=== PATIENT | female | born 1930 | race Caucasian/White ===

== ENCOUNTER 2016-07-05 15:02 | Observation (INO) | payer OTHER ==
[~2016-07-05] VITALS: Ht 157.5 cm; Wt 51.3 kg
--- NOTE | ~2016-07-05 | EKG ---
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: : 1930 Requested By: Kaitlynn Dove Order Number: [id number] MD: Norbert Estevez Measurements Intervals [place] Rate: 97 P: 62 UT: 180 QRS: -31 QRSD: 120 T: 48 QT: 394 QTc: 501 Interpretive Statements Sinus rhythmWith occasional premature ventricular complexes Incomplete left bundle branch block Left ventricular hypertrophy Prolonged QT interval Compared to ECG 05/27/2016 07:40:59 Atrial premature complexes no longer present Premature ventricular complexes noted Electronically Signed On 07-06-2016 14:22:54 CRM MARKETING EXECUTIVE by Norbert Estevez [email or web address] <ELECTRONICALLY SIGNED> By: Norbert Estevez MD, [facility] 07/06/16 1422 1548 1548 Norbert Estevez MD, [facility] /EPI
[~2016-07-05 15:02] MED LIST: COREG25 MG PO; DIGOXIN125 MCG PO; FISH OIL500 M2 PO; HYDRALAZINE 2525 MG PO; LANOXIN 0.120.125 M1 PO; LASIX 20 MG TAB20 MG PO; MIRALAX255 GM PO; NYSTATIN15 GM TP; PANTOPRAZOLE SO40 M1 PO; PRAVACHOL40 MG PO; PRAVASTATIN SOD80 MG PO; PROTONIX40 MG PO; TYLENOL325 MG PO; ZOFRAN ODT4 MG PO
[2016-07-05 15:05] VITALS: BP 118/61
[2016-07-05 16:14] LABS: HEMOGLOBIN 8.4 gm/dL (12.0-15.0); MCHC 33.5 % (28.0-37.0); MCV 86.4 fL (80.0-100.0); RBC 2.89 mil/uL (4.20-5.00); RDW 17.2 % (10.5-14.5); WBC 3.7 thou/uL (4.0-11.0)
[2016-07-05 16:19] LABS: ANION GAP 10 mmol/L (7-16); BUN 31 mg/dL (7-18); CALCIUM 9.4 mg/dL (8.5-10.1); CHLORIDE 104 mmol/L (98-107); CO2 28 mmol/L (21-32); CREATININE 1.5 mg/dL (0.6-1.3); GLUCOSE 103 mg/dL (70-99); POTASSIUM 3.9 mmol/L (3.5-5.1); SODIUM 142 mmol/L (136-145)
[2016-07-05 16:33] LABS: ALBUMIN 3.8 g/dL (3.4-5.0); ALKALINE PHOSPHATASE 107 U/L (46-116); NT-PRO BRAIN NAT PEPTIDE 8954 pg/mL (<300); SGOT 14 U/L (15-37); SGPT 30 U/L (30-65); TOTAL BILIRUBIN 0.6 mg/dL (<0.1-1.0); TOTAL PROTEIN 7.5 g/dL (6.4-8.2); TROPONIN-I < 0.04 ng/mL (<0.04-0.07)
[2016-07-05 17:55] VITALS: BP 117/87
[2016-07-05 21:00] VITALS: BP 91/56
[2016-07-05 22:01] LABS: CK-MB MASS 0.8 ng/mL (<0.5-3.6); TROPONIN-I < 0.04 ng/mL (<0.04-0.07)
[2016-07-06 03:18] LABS: CK-MB MASS < 0.5 ng/mL (<0.5-3.6); TROPONIN-I < 0.04 ng/mL (<0.04-0.07)
[2016-07-06 04:00] VITALS: BP 96/50
[2016-07-06 08:28] VITALS: BP 104/60
[2016-07-06] MEDS ORDERED: ASPIR 8181 MG PO (11:21)
[2016-07-06 12:10] VITALS: BP 107/53
[2016-07-06 12:13] VITALS: BP 107/53
[2016-08-18] MEDS ORDERED: FLONASE 0.05%50 MCG NASAL (17:30)
[2016-08-20] MEDS ORDERED: LASIX 40 MG TAB40 M2 PO (09:41)
[2016-08-20] MEDS ORDERED: HYDRALAZINE 2525 MG PO (11:50)
== END 2016-07-06 13:46 | disposition home or self-care (01) ==
LOC: ER 15:02 → 4E 16:58 → EROBS 16:58 → 4E 17:57
PROVIDERS: Hospitalist; Physician Assistant
DX: I13.0 Hypertensive heart and chronic kidney disease with heart failure and stage 1 through stage 4 chronic kidney disease, or unspecified chronic kidney disease (principal); I50.23 Acute on chronic systolic (congestive) heart failure; N18.9 Chronic kidney disease, unspecified; N17.0 Acute kidney failure with tubular necrosis; J81.1 Chronic pulmonary edema; D50.0 Iron deficiency anemia secondary to blood loss (chronic); K21.9 Gastro-esophageal reflux disease without esophagitis; L02.91 Cutaneous abscess, unspecified; H26.9 Unspecified cataract; L22 Diaper dermatitis; R51 Headache; Z88.0 Allergy status to penicillin; Z79.899 Other long term (current) drug therapy

== ENCOUNTER 2016-10-12 18:00 | Emergency (ER) | payer OTHER ==
[~2016-10-12] VITALS: Ht 157.5 cm; Wt 46.3 kg
[~2016-10-12 18:00] MED LIST changes: +ASPIR 8181 MG PO; +FLONASE 0.05%50 MCG NASAL; +LASIX 40 MG TAB40 M2 PO
== END 2016-10-12 18:46 | disposition home or self-care (01) ==
LOC: ER 18:00
DX: S01.01XA Laceration without foreign body of scalp, initial encounter (principal); I13.0 Hypertensive heart and chronic kidney disease with heart failure and stage 1 through stage 4 chronic kidney disease, or unspecified chronic kidney disease; N18.9 Chronic kidney disease, unspecified; I50.9 Heart failure, unspecified; Z88.0 Allergy status to penicillin; W18.09XA Striking against other object with subsequent fall, initial encounter; Y93.89 Activity, other specified; Y92.89 Other specified places as the place of occurrence of the external cause; Y99.8 Other external cause status

== ENCOUNTER 2016-10-26 10:24 | Inpatient (IN) | payer OTHER ==
[~2016-10-26] VITALS: Ht 157.5 cm; Wt 49.0 kg
--- NOTE | ~2016-10-26 | EKG ---
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 : 1930 Requested By: Taya Antoine Order Number: [id number] MD: Norbert Estevez Measurements Intervals [place] Rate: 69 P: 41 [place]: 187 QRS: -40 QRSD: 127 T: 3 QT: 439 QTc: 471 Interpretive Statements Sinus rhythm Multiple premature complexes, vent & supraven Leftward axis Nonspecific intraventricular conduction delay Compared to ECG 08/18/2016 17:53:45 nonspecific change in the ST and T wave segments Electronically Signed On 10-28-2016 8:32:33 CDT by Norbert Estevez [email or web address] <ELECTRONICALLY SIGNED> By: Norbert Estevez MD, [facility] 10/28/16 0832 1031 1031 Norbert Estevez MD, [facility] /EPI
--- NOTE | ~2016-10-26 | HC ---
[facility] [place] [address] CONSULTATION Name: SHANNON PARISH Room #: 459-P ADM IN M.R.#: [id number] Admission: 10/26/16 Attend Phys: Rafal Esqueda MD Discharge: Date of : 30 Report #: [id number] THIS REPORT FOR: //name// CC: FAM unknown Esequiel Esqueda Patient's Chart DATE OF SERVICE: 10/27/2016 HISTORY OF PRESENT ILLNESS: The patient is an 85-year-old female who I was asked to see in the hospital today after she complained of being short of breath. The patient has a history of cardiomyopathy. She has had a history of orthostatic hypotension in the past. She has been followed by my partner, Dr. Canales. She has never had a heart catheterization but an echocardiogram last April showed an ejection fraction of 30% with left atrial enlargement, moderate mitral and tricuspid insufficiency. The patient has had several hospitalizations here at [facility]. The patient has not been on an GRICELDA inhibitor or ARB in the past because of hypotension. She was not on spironolactone because of chronic kidney disease. The patient was actually just admitted here to [facility] in July with acute on chronic systolic heart failure. She was diuresed with Lasix. She was brought to the emergency room yesterday with fatigue, no appetite, shortness of breath. After admission, she was noted to have hypotension. I was asked to see her for further evaluation and treatment. She denies any chest pain, palpitations. She has felt lightheaded. She has had no syncope. PAST MEDICAL HISTORY: Significant for tonsillectomy, cataract extraction, hysterectomy. She has a history of hyperlipidemia, chronic kidney disease. CURRENT MEDICATIONS: Include Lasix, hydralazine, Protonix, carvedilol, aspirin. ALLERGIES: She has an allergy to PENICILLIN. FAMILY HISTORY: Significant for diabetes. SOCIAL HISTORY: She is . She and her live in [place], [place]. Nonsmoker, nondrinker. REVIEW OF SYSTEMS: She had no history of stroke, asthma, peptic ulcer disease, liver disease, cancer, psychiatric illness, chronic skin condition. PHYSICAL EXAMINATION: GENERAL: Revealed an elderly frail appearing female lying in bed. She appears in no distress. VITAL SIGNS: When she came to the emergency room yesterday, she had a blood [facility] [address] [place] [address] CONSULTATION Name: SHANNON PARISH Room #: 459-P [facility] IN .R.#: [id number] Admission: 10/26/16 Attend Phys: Rafal Eqsueda MD Discharge: Date of : 30 Report #: [id number] pressure only 80 systolic, pulse 70. She is afebrile. HEENT: She is anicteric. Conjunctivae are pink. Mucous membranes are moist. NECK: Veins appear mildly distended. No carotid bruits. CHEST: Clear to auscultation. CARDIOVASCULAR: Regular rate and rhythm, grade 3 holosystolic murmur at the apex. ABDOMEN: Soft. EXTREMITIES: Had no edema. Posterior tibial pulse 2+ bilaterally. SKIN: Warm, dry. NEUROLOGIC: Nonfocal. LYMPH: No adenopathy. MUSCULOSKELETAL: She did have some deformity of her interphalangeal joints. LABORATORY DATA: Her ECG showed a sinus rhythm, occasional PAC, occasional PVC. Left axis, nonspecific ST segment changes. Her workup in the emergency room, she had sodium 140, potassium 3.8. Her BUN was 38, creatinine was 1.6. Her liver function studies were normal. Her white blood cell count was 3.9, hemoglobin was 7.7. Her MCV is 85, platelet count 132,000. TSH in July was 3.5, ferritin in April was 239. B12 in July was 467. Urinalysis, trace protein, negative leukocytes. IMPRESSION AND RECOMMENDATIONS: 1. Cardiomyopathy. I would recommend repeat echocardiogram. I would hold the patient's carvedilol and hydralazine at this time because of low blood pressure. 2. Chronic kidney disease. 3. Anemia. No history of bleeding. 4. Chronic kidney disease. <ELECTRONICALLY SIGNED> By: Cristiano Stewart MD, FACC 10/28/16 0842 1719 0745 Cristiano Stewart MD, FACC /nt
[2016-10-26 10:25] VITALS: BP 80/49
[2016-10-26 10:41] LABS: HEMATOCRIT 23.7 % (37.0-47.0); MCH 28.7 pg (26.0-34.0); MCHC 33.9 g/dL (28.0-37.0); MCV 84.9 fL (80.0-100.0); PLATELET COUNT 128 thou/uL (150-400); RBC 2.79 mil/uL (4.20-5.00); RDW 20.1 % (10.5-14.5); WBC 3.7 thou/uL (4.0-11.0)
[2016-10-26 10:42] LABS: MANUAL DIFF YES
[2016-10-26 10:49] LABS: CALCIUM 8.5 mg/dL (8.5-10.1); CREATININE 1.7 mg/dL (0.6-1.0); POTASSIUM 4.3 mmol/L (3.5-5.1)
[2016-10-26 10:52] LABS: URINE BILIRUBIN NEGATIVE (Negative); URINE BLOOD NEGATIVE (Negative); URINE COLOR YELLOW; URINE GLUCOSE-RANDOM* NEGATIVE (Negative); URINE KETONES NEGATIVE (Negative); URINE NITRITE NEGATIVE (Negative); URINE PROTEIN (DIPSTICK) TRACE (Negative); URINE UROBILINOGEN 0.2 E.U./dl (0.2-1.0)
[2016-10-26 11:23] LABS: ABSOLUTE NEUTROPHILS 2.1 thou/uL (1.4-8.2); METAMYELOCYTES 1 %; TOTAL CELL COUNT 100
[2016-10-26 11:24] LABS: ANISOCYTOSIS 1+; OVALOCYTES FEW; POLYCHROMASIA OCCASIONAL
[2016-10-26 11:31] LABS: ALBUMIN 3.4 g/dL (3.4-5.0); DIRECT BILIRUBIN 0.2 mg/dL (<0.1-0.3); TOTAL BILIRUBIN 0.6 mg/dL (<0.1-1.0); TOTAL PROTEIN 6.8 g/dL (6.4-8.2)
[2016-10-26 12:45] VITALS: BP 108/74
[2016-10-26 13:10] VITALS: BP 94/60
[2016-10-26 16:06] VITALS: BP 92/55
[2016-10-26 19:05] VITALS: BP 97/73
[2016-10-27] VITALS (8 sets, daily range): BP systolic 82–120; BP diastolic 51–86
[2016-10-27 05:31] LABS: CALCIUM 8.7 mg/dL (8.5-10.1); CREATININE 1.6 mg/dL (0.6-1.0); POTASSIUM 3.8 mmol/L (3.5-5.1)
[2016-10-27 05:37] LABS: HEMATOCRIT 23.2 % (37.0-47.0); HEMOGLOBIN 7.7 gm/dL (12.0-15.0); MCH 28.4 pg (26.0-34.0); MCHC 33.2 g/dL (28.0-37.0); MCV 85.4 fL (80.0-100.0); RBC 2.71 mil/uL (4.20-5.00); RDW 19.9 % (10.5-14.5); WBC 3.9 thou/uL (4.0-11.0)
[2016-10-28 03:49] VITALS: BP 121/69
[2016-10-28 04:49] LABS: HEMATOCRIT 26.3 % (37.0-47.0); HEMOGLOBIN 8.7 gm/dL (12.0-15.0)
[2016-10-28 05:06] LABS: CALCIUM 8.8 mg/dL (8.5-10.1); CREATININE 1.5 mg/dL (0.6-1.0); POTASSIUM 4.1 mmol/L (3.5-5.1)
[2016-10-28 07:15] VITALS: BP 123/70
[2016-10-28 11:49] VITALS: BP 116/76
[2016-10-28 15:23] VITALS: BP 112/74
[2016-10-28 19:23] VITALS: BP 114/69
[2016-10-29] VITALS (7 sets, daily range): BP systolic 99–113; BP diastolic 61–81
[2016-10-29] MEDS ORDERED: SPIRONOLACTONE25 M1 PO (10:33)
[2016-10-29] MEDS ORDERED: COREG6.25 MG PO (10:33)
== END 2016-10-29 16:50 | disposition home health service (06) | DRG 315 ==
LOC: ER 10:24 → 4W 12:15 → EROBS 12:15 → 4W 12:45
PROVIDERS: Emergency Medicine; Family Medicine; Internal Medicine Cardiovascular Disease
DX: I42.9 Cardiomyopathy, unspecified (principal); D61.818 Other pancytopenia; I13.0 Hypertensive heart and chronic kidney disease with heart failure and stage 1 through stage 4 chronic kidney disease, or unspecified chronic kidney disease; E44.0 Moderate protein-calorie malnutrition; Z68.1 Body mass index [BMI] 19.9 or less, adult; I95.9 Hypotension, unspecified; N18.9 Chronic kidney disease, unspecified; I50.9 Heart failure, unspecified; E78.5 Hyperlipidemia, unspecified; D64.9 Anemia, unspecified; Z88.0 Allergy status to penicillin; Z83.3 Family history of diabetes mellitus; Z98.49 Cataract extraction status, unspecified eye; Z90.710 Acquired absence of both cervix and uterus
CPT/HCPCS: 10045

== ENCOUNTER 2016-12-02 13:38 | Inpatient (IN) | payer OTHER ==
[~2016-12-02] VITALS: Ht 157.5 cm; Wt 47.2 kg
--- NOTE | ~2016-12-02 | HC ---
[facility] [place] [address] CONSULTATION Name: SHANNON PARISH Room #: 435-P ADM IN M.R.#: [id number] Admission: 12/02/16 Attend Phys: J Carlos Meeyr MD Discharge: Date of : 30 Report #: [id number] THIS REPORT FOR: //name// CC: FAM unknown Hermilo Allison HISTORY OF PRESENT ILLNESS: The patient is a very pleasant 86-year-old female who states that when she woke up last night she felt short of breath. I asked the patient if there were any other symptoms associated with the shortness of breath and she told me that they were not. However, reading the information from the emergency room, the patient also presented with slurred speech. By the time the patient came to the emergency room, she had returned to normal. The patient states that she had difficulty speaking and it was difficult for her to talk. She was also confused at home and according to the information that she told Dr. Meyer all the rooms seemed odd or bizarre and she had difficulty recognizing her house. The patient does admit to having some difficulty with her memory. A CT scan of the head was done and was unremarkable. An MRI of the head was done and demonstrates extensive atrophy and chronic microvascular disease. PAST MEDICAL HISTORY: Congestive heart failure, hypertension, chronic renal disease. PAST SURGICAL HISTORY: Noncontributory. MEDICATIONS: Apresoline 25 mg q.i.d., aspirin 81 mg daily, atorvastatin 40 mg at bedtime, Coreg 6.25 mg b.i.d., Restasis b.i.d. ALLERGIES: PENICILLIN. VITAL SIGNS: Blood pressure 105/60, pulse oximetry 94%, respirations 18, pulse 80, temperature is 36.3, white blood cell count 5.6, hemoglobin 8.6, hematocrit 25.7, MCV 86.7, platelet count 171,000. Sodium 137, potassium 3.8, chloride 102, carbon dioxide 24, BUN 38 and creatinine 1.4, GFR 36, glucose 94, calcium 8.7, and magnesium 2.1. NEUROLOGIC: Mentation, the patient was not oriented to time. She did not know the year, the month, the date, the day of the week or the season. She was oriented to place. Immediate recall was 3/3 objects, remote recall was 0 of three objects. She was able to spell world, but could not spell it backwards. She was able to name and repeat. Cranial nerves 2-12 are grossly intact. Motor exam demonstrates symmetrical strength in all 4 extremities with tone and bulk normal. Reflexes are trace throughout. Plantar responses are flexor. Coordination reveals intact [id number]. Gait was not tested. IMPRESSION: Although the patient may have had slurred speech. The episode of [facility] [address] [place] [address] CONSULTATION Name: SHANNON PARISH Room #: 435-P [facility] IN M.R.#: [id number] Admission: 12/02/16 Attend Phys: J Carlos Meyer MD Discharge: Date of : 30 Report #: [id number] confusion is most likely related to Alzheimer disease. I did not do a complete mini mental status exam, but the portion of the mini mental state exam that was done is suggestive of a moderate dementia. B12 and TSH will be drawn to look for treatable causes of dementia, medications such as donepezil may be considered. as A carotid ultrasound will be ordered to make sure that she does not have significant vascular disease. I thank you for your kind referral of the patient and will continue to follow her with you. <ELECTRONICALLY SIGNED> By: Dari Gallo DO 12/04/16 1149 1550 0251 Dari Gallo DO /nt
--- NOTE | ~2016-12-02 | EKG ---
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 Electronically Signed On 12-02-2016 16:12:47 CDT by Naveen Urbina [email or web address] <ELECTRONICALLY SIGNED> By: Naveen Urbina MD 12/02/16 1612 1437 1437 MD STEVEN Foreman
[~2016-12-02 13:38] MED LIST changes: +COREG6.25 MG PO; +SPIRONOLACTONE25 M1 PO
[2016-12-02 13:39] VITALS: BP 107/59
[2016-12-02 13:59] LABS: HEMATOCRIT 28.6 % (37.0-47.0); HEMOGLOBIN 9.5 gm/dL (12.0-15.0); MCHC 33.1 g/dL (28.0-37.0); MCV 87.6 fL (80.0-100.0); PLATELET COUNT 190 thou/uL (150-400); RBC 3.27 mil/uL (4.20-5.00); RDW 19.7 % (10.5-14.5)
[2016-12-02 14:04] LABS: MANUAL DIFF YES
[2016-12-02 14:10] LABS: CALCIUM 9.1 mg/dL (8.5-10.1); CREATININE 1.4 mg/dL (0.6-1.0); POTASSIUM 4.3 mmol/L (3.5-5.1)
[2016-12-02 14:15] LABS: APTT 25.8 Seconds (24.5-32.8); INR 1.2; PROTIME 12.5 Seconds (9.3-11.4)
[2016-12-02 14:32] LABS: ABSOLUTE NEUTROPHILS 4.7 thou/uL (1.4-8.2); TOTAL CELL COUNT 100
[2016-12-02 14:33] LABS: ANISOCYTOSIS 2+; SCHISTOCYTES FEW
[2016-12-02 14:36] LABS: POLYCHROMASIA 1+
[2016-12-02 14:39] LABS: OVALOCYTES 1+
[2016-12-02] MEDS ORDERED: RESTASIS1 EACH OPHTHALMIC (15:00)
[2016-12-02] MEDS ORDERED: BIOTIN5000 MCG PO (15:00)
[2016-12-02] MEDS ORDERED: FLOVENT HFA 4444 MCG INH (15:01)
[2016-12-02] MEDS ORDERED: FUROSEMIDE 20 M20 MG PO (15:02)
[2016-12-02] MEDS ORDERED: MIRALAX17 GM PO (15:02)
[2016-12-02 15:57] VITALS: BP 97/54
[2016-12-02 16:27] VITALS: BP 99/71
[2016-12-02 19:35] VITALS: BP 110/57
[2016-12-03 04:32] VITALS: BP 100/51
[2016-12-03 06:08] LABS: HEMATOCRIT 25.7 % (37.0-47.0); HEMOGLOBIN 8.6 gm/dL (12.0-15.0); MCH 29.1 pg (26.0-34.0); MCHC 33.6 g/dL (28.0-37.0); MCV 86.7 fL (80.0-100.0); RBC 2.96 mil/uL (4.20-5.00); RDW 19.8 % (10.5-14.5); WBC 5.6 thou/uL (4.0-11.0)
[2016-12-03 06:15] LABS: CALCIUM 8.7 mg/dL (8.5-10.1); CREATININE 1.4 mg/dL (0.6-1.0); POTASSIUM 3.8 mmol/L (3.5-5.1)
[2016-12-03 07:37] VITALS: BP 107/66
[2016-12-03 16:14] VITALS: BP 110/63
[2016-12-03 16:29] LABS: TSH 3.147 uIU/mL (0.358-3.740)
[2016-12-03 19:28] VITALS: BP 106/64
[2016-12-04 04:28] VITALS: BP 107/54
[2016-12-04 08:10] VITALS: BP 104/54
[2016-12-04] MEDS ORDERED: ATORVASTATIN CA40 MG PO (11:52)
[2016-12-04 12:46] VITALS: BP 104/54
[2016-12-04 14:44] VITALS: BP 104/54
== END 2016-12-04 15:36 | disposition home or self-care (01) | DRG 69 ==
LOC: ER 13:38 → 4S 16:11 → EROBS 16:28 → 4S 16:30
PROVIDERS: Emergency Medicine; Hospitalist; Psychiatry & Neurology Neurology
DX: G45.9 Transient cerebral ischemic attack, unspecified (principal); E44.0 Moderate protein-calorie malnutrition; I13.0 Hypertensive heart and chronic kidney disease with heart failure and stage 1 through stage 4 chronic kidney disease, or unspecified chronic kidney disease; Z68.1 Body mass index [BMI] 19.9 or less, adult; G30.9 Alzheimer's disease, unspecified; R47.81 Slurred speech; I50.9 Heart failure, unspecified; N18.9 Chronic kidney disease, unspecified; F02.80 Dementia in other diseases classified elsewhere, unspecified severity, without behavioral disturbance, psychotic disturbance, mood disturbance, and anxiety; Z88.0 Allergy status to penicillin; Z79.82 Long term (current) use of aspirin; Z79.899 Other long term (current) drug therapy
CPT/HCPCS: 10100

== ENCOUNTER 2016-12-17 10:06 | Emergency (ER) | payer OTHER ==
[~2016-12-17] VITALS: Ht 157.5 cm; Wt 47.6 kg
[~2016-12-17 10:06] MED LIST changes: +ATORVASTATIN CA40 MG PO; +BIOTIN5000 MCG PO; +FLOVENT HFA 4444 MCG INH; +FUROSEMIDE 20 M20 MG PO; +MIRALAX17 GM PO; +RESTASIS1 EACH OPHTHALMIC
[2016-12-17 10:39] LABS: HEMATOCRIT 32.5 % (37.0-47.0); HEMOGLOBIN 10.5 gm/dL (12.0-15.0); MCHC 32.3 g/dL (28.0-37.0); MCV 86.7 fL (80.0-100.0); RBC 3.75 mil/uL (4.20-5.00); RDW 18.6 % (10.5-14.5); WBC 6.1 thou/uL (4.0-11.0)
[2016-12-17 10:51] LABS: CALCIUM 9.1 mg/dL (8.5-10.1); CREATININE 1.4 mg/dL (0.6-1.0); POTASSIUM 3.4 mmol/L (3.5-5.1)
[2016-12-17 11:33] LABS: URINE BLOOD 3+ (Negative); URINE COLOR RED; URINE GLUCOSE-RANDOM* NEGATIVE (Negative); URINE KETONES NEGATIVE (Negative); URINE LEUKOCYTES-REFLEX TRACE (Negative); URINE PROTEIN (DIPSTICK) 3+ (Negative)
[2016-12-17 11:35] LABS: ICTOTEST (BILI CONFIRMATORY) Negative (Negative); URINE BILIRUBIN NEGATIVE (Negative)
[2016-12-17 11:43] LABS: CASTS None Seen /LPF (None Seen); CRYSTALS None Seen /LPF (None Seen); SQUAMOUS 0-3 Few /LPF (0-3); URINE RBC >20 Many /HPF (0-2); URINE WBC-REFLEX 6-15 Few /HPF (0-5); WBC CLUMPS Few (None Seen)
[2016-12-17] MEDS ORDERED: CIPROFLOXACIN500 M1 PO (12:04)
== END 2016-12-17 12:05 | disposition home or self-care (01) ==
LOC: ER 10:06
PROVIDERS: Nurse Practitioner Family
DX: N39.0 Urinary tract infection, site not specified (principal); I13.0 Hypertensive heart and chronic kidney disease with heart failure and stage 1 through stage 4 chronic kidney disease, or unspecified chronic kidney disease; N18.9 Chronic kidney disease, unspecified; I50.9 Heart failure, unspecified; Z88.0 Allergy status to penicillin

== ENCOUNTER 2017-01-01 12:38 | Inpatient (IN) | payer OTHER ==
[~2017-01-01] VITALS: Ht 157.5 cm; Wt 49.3 kg
[~2017-01-01 12:38] MED LIST changes: +CIPROFLOXACIN500 M1 PO
[2017-01-01 12:39] VITALS: BP 98/60
[2017-01-01] MEDS ORDERED: ALDACTONE25 MG PO (13:16)
[2017-01-01 13:44] LABS: URINE BILIRUBIN NEGATIVE (Negative); URINE BLOOD NEGATIVE (Negative); URINE COLOR YELLOW; URINE GLUCOSE-RANDOM* NEGATIVE (Negative); URINE KETONES NEGATIVE (Negative); URINE LEUKOCYTES-REFLEX NEGATIVE (Negative); URINE PROTEIN (DIPSTICK) TRACE (Negative); URINE SPECIFIC GRAVITY <= 1.005 (1.003-1.035); URINE UROBILINOGEN 0.2 E.U./dl (0.2-1.0)
[2017-01-01 14:00] LABS: HEMATOCRIT 31.5 % (37.0-47.0); HEMOGLOBIN 10.2 gm/dL (12.0-15.0); MCH 27.6 pg (26.0-34.0); MCHC 32.4 g/dL (28.0-37.0); MCV 85.4 fL (80.0-100.0); PLATELET COUNT 109 thou/uL (150-400); RBC 3.69 mil/uL (4.20-5.00); RDW 18.7 % (10.5-14.5); WBC 4.4 thou/uL (4.0-11.0)
[2017-01-01 14:01] LABS: MANUAL DIFF YES
[2017-01-01 14:09] LABS: ANION GAP 8 mmol/L (7-16); BUN 49 mg/dL (7-18); CALCIUM 8.8 mg/dL (8.5-10.1); CHLORIDE 99 mmol/L (98-107); CO2 27 mmol/L (21-32); CREATININE 1.6 mg/dL (0.6-1.0); GLUCOSE 100 mg/dL (74-106); POTASSIUM 4.2 mmol/L (3.5-5.1); SODIUM 134 mmol/L (136-145)
[2017-01-01 14:18] LABS: APTT 24.7 Seconds (24.5-32.8); INR 1.3; PROTIME 13.4 Seconds (9.3-11.4)
[2017-01-01 14:21] LABS: ABSOLUTE NEUTROPHILS 3.1 thou/uL (1.4-8.2); ANISOCYTOSIS 1+; TOTAL CELL COUNT 100
[2017-01-01 14:22] LABS: LARGE PLATELETS RARE
[2017-01-01 14:29] LABS: ALBUMIN 3.2 g/dL (3.4-5.0); ALKALINE PHOSPHATASE 130 U/L (46-116); CK-MB MASS 0.7 ng/mL (<0.5-3.6); NT-PRO BRAIN NAT PEPTIDE 13407 pg/mL (<300); SGOT 20 U/L (15-37); SGPT 18 U/L (30-65); TOTAL BILIRUBIN 1.2 mg/dL (<0.1-1.0); TOTAL PROTEIN 6.3 g/dL (6.4-8.2); TROPONIN-I < 0.04 ng/mL (<0.04-0.07)
[2017-01-01 16:00] VITALS: BP 108/67
[2017-01-01 16:42] VITALS: BP 108/66
[2017-01-01 20:14] VITALS: BP 100/59
[2017-01-02] VITALS: BP 96/70
[2017-01-02 04:00] VITALS: BP 102/61
[2017-01-02 06:42] LABS: HEMATOCRIT 30.2 % (37.0-47.0); HEMOGLOBIN 9.7 gm/dL (12.0-15.0); MCH 27.4 pg (26.0-34.0); MCHC 32.2 g/dL (28.0-37.0); MCV 84.9 fL (80.0-100.0); RBC 3.55 mil/uL (4.20-5.00); RDW 18.7 % (10.5-14.5); WBC 4.1 thou/uL (4.0-11.0)
[2017-01-02 06:58] LABS: CALCIUM 8.6 mg/dL (8.5-10.1); CREATININE 1.6 mg/dL (0.6-1.0); POTASSIUM 4.2 mmol/L (3.5-5.1); TOTAL PROTEIN 5.9 g/dL (6.4-8.2)
[2017-01-02 08:00] VITALS: BP 114/60
[2017-01-02 16:00] VITALS: BP 111/70
[2017-01-02 20:00] VITALS: BP 115/72
[2017-01-03 04:00] VITALS: BP 107/72
[2017-01-03 06:04] LABS: MCH 27.4 pg (26.0-34.0); MCHC 32.4 g/dL (28.0-37.0); MCV 84.4 fL (80.0-100.0); RBC 3.67 mil/uL (4.20-5.00); RDW 18.7 % (10.5-14.5)
[2017-01-03 06:22] LABS: CALCIUM 9.2 mg/dL (8.5-10.1); CREATININE 1.6 mg/dL (0.6-1.0); POTASSIUM 3.9 mmol/L (3.5-5.1)
[2017-01-03 08:00] VITALS: BP 102/76
[2017-01-03 15:45] VITALS: BP 118/72
[2017-01-03 20:01] VITALS: BP 101/57
[2017-01-04 03:19] VITALS: BP 120/74
[2017-01-04 03:32] LABS: HEMATOCRIT 31.5 % (37.0-47.0); HEMOGLOBIN 10.3 gm/dL (12.0-15.0); MCH 27.3 pg (26.0-34.0); MCHC 32.7 g/dL (28.0-37.0); MCV 83.4 fL (80.0-100.0); RBC 3.78 mil/uL (4.20-5.00); RDW 18.7 % (10.5-14.5); WBC 5.8 thou/uL (4.0-11.0)
[2017-01-04 03:36] LABS: ALBUMIN 3.2 g/dL (3.4-5.0); CALCIUM 9.1 mg/dL (8.5-10.1); CREATININE 1.7 mg/dL (0.6-1.0); MAGNESIUM 1.9 mg/dL (1.8-2.4); PHOSPHORUS 3.5 mg/dL (2.5-4.9); POTASSIUM 3.5 mmol/L (3.5-5.1)
[2017-01-04 08:00] VITALS: BP 103/64
[2017-01-04 16:00] VITALS: BP 105/56
[2017-01-04 20:05] VITALS: BP 98/43
[2017-01-05 04:10] VITALS: BP 101/57
[2017-01-05 06:29] LABS: HEMATOCRIT 29.6 % (37.0-47.0); HEMOGLOBIN 9.7 gm/dL (12.0-15.0); MCH 27.4 pg (26.0-34.0); MCHC 32.7 g/dL (28.0-37.0); MCV 83.9 fL (80.0-100.0); RBC 3.53 mil/uL (4.20-5.00); WBC 5.3 thou/uL (4.0-11.0)
[2017-01-05 06:37] LABS: CALCIUM 9.1 mg/dL (8.5-10.1); CREATININE 1.5 mg/dL (0.6-1.0)
[2017-01-05 06:50] LABS: POTASSIUM 2.8 mmol/L (3.5-5.1)
[2017-01-05 07:30] VITALS: BP 93/62
[2017-01-05] MEDS ORDERED: K-DUR 20 MEQ T20 MEQ PO (09:19)
[2017-01-05] MEDS ORDERED: LASIX 40 MG TAB40 M1 PO (09:19)
[2017-01-05 13:01] VITALS: BP 93/62
[2017-01-05 13:47] VITALS: BP 93/62
[2017-01-05 14:49] VITALS: BP 93/62
== END 2017-01-05 14:50 | disposition home health service (06) | DRG 291 ==
LOC: ER 12:38 → EROBS 14:41 → 3N 14:41
PROVIDERS: Emergency Medicine; Family Medicine; Hospitalist
DX: I13.0 Hypertensive heart and chronic kidney disease with heart failure and stage 1 through stage 4 chronic kidney disease, or unspecified chronic kidney disease (principal); J18.9 Pneumonia, unspecified organism; I50.23 Acute on chronic systolic (congestive) heart failure; N17.9 Acute kidney failure, unspecified; E44.1 Mild protein-calorie malnutrition; I47.2 Ventricular tachycardia; Z68.1 Body mass index [BMI] 19.9 or less, adult; D69.6 Thrombocytopenia, unspecified; D64.9 Anemia, unspecified; N28.1 Cyst of kidney, acquired; E87.6 Hypokalemia; N18.3 Chronic kidney disease, stage 3 (moderate); Z90.710 Acquired absence of both cervix and uterus; Z82.49 Family history of ischemic heart disease and other diseases of the circulatory system; Z83.3 Family history of diabetes mellitus; Z79.82 Long term (current) use of aspirin; Z90.49 Acquired absence of other specified parts of digestive tract; Z79.899 Other long term (current) drug therapy; Z88.0 Allergy status to penicillin
CPT/HCPCS: 10096

== ENCOUNTER 2017-01-13 11:03 | Emergency (ER) | payer OTHER ==
[~2017-01-13] VITALS: Ht 157.5 cm; Wt 45.4 kg
--- NOTE | ~2017-01-13 | EKG ---
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: JUAN LUIS : 1930 Requested By: Taya Antoine Order Number: [id number] MD: Norbert Estevez Measurements Intervals [place] Rate: 66 P: 63 OH: 208 QRS: -54 QRSD: 122 T: 23 QT: 416 QTc: 436 Interpretive Statements Sinus rhythm Incomplete Left bundle branch block Baseline wander in lead(s) V1,V6 Compared to ECG 12/02/2016 14:37:36 Ventricular premature complex(es) no longer present Atrial premature complex(es) no longer present Electronically Signed On 01-14-2017 8:22:32 CDT by Norbert Estevez [email or web address] <ELECTRONICALLY SIGNED> By: Norbert Estevez MD, FACC 01/14/17 0822 1127 1127 Norbert Estevez MD, [facility] /EPI
[~2017-01-13 11:03] MED LIST changes: +ALDACTONE25 MG PO; +K-DUR 20 MEQ T20 MEQ PO; +LASIX 40 MG TAB40 M1 PO
[2017-01-13 11:52] LABS: HEMATOCRIT 31.1 % (37.0-47.0); HEMOGLOBIN 10.1 gm/dL (12.0-15.0); MCHC 32.6 g/dL (28.0-37.0); MCV 82.9 fL (80.0-100.0); PLATELET COUNT 83 thou/uL (150-400); RBC 3.76 mil/uL (4.20-5.00); RDW 18.8 % (10.5-14.5); WBC 4.4 thou/uL (4.0-11.0)
[2017-01-13 11:55] LABS: MANUAL DIFF YES
[2017-01-13 11:58] LABS: CALCIUM 8.8 mg/dL (8.5-10.1); CREATININE 1.4 mg/dL (0.6-1.0); POTASSIUM 4.7 mmol/L (3.5-5.1)
[2017-01-13 12:19] LABS: URINE BILIRUBIN NEGATIVE (Negative); URINE BLOOD NEGATIVE (Negative); URINE COLOR YELLOW; URINE GLUCOSE-RANDOM* NEGATIVE (Negative); URINE KETONES NEGATIVE (Negative); URINE NITRITE NEGATIVE (Negative); URINE PROTEIN (DIPSTICK) NEGATIVE (Negative); URINE SPECIFIC GRAVITY <= 1.005 (1.003-1.035); URINE UROBILINOGEN 0.2 E.U./dl (0.2-1.0)
[2017-01-13 12:56] LABS: ABSOLUTE NEUTROPHILS 2.9 thou/uL (1.4-8.2); ANISOCYTOSIS 2+; BURR CELLS 1+; LARGE PLATELETS FEW; POIKILOCYTOSIS SLIGHT; TOTAL CELL COUNT 100
== END 2017-01-13 12:59 | disposition home or self-care (01) ==
LOC: ER 11:03
PROVIDERS: Emergency Medicine
DX: R45.4 Irritability and anger (principal); D64.9 Anemia, unspecified; D69.6 Thrombocytopenia, unspecified; I13.0 Hypertensive heart and chronic kidney disease with heart failure and stage 1 through stage 4 chronic kidney disease, or unspecified chronic kidney disease; N18.9 Chronic kidney disease, unspecified; I50.9 Heart failure, unspecified; Z79.82 Long term (current) use of aspirin; Z88.0 Allergy status to penicillin

== ENCOUNTER → 2017-02-23 | Outpatient (CLI) | payer OTHER | LOC: MRI 08:34 | DX: I67.82 Cerebral ischemia (principal); F03.90 Unspecified dementia, unspecified severity, without behavioral disturbance, psychotic disturbance, mood disturbance, and anxiety; R26.9 Unspecified abnormalities of gait and mobility ==